=== PATIENT | male | born 1985 | race Native Hawaiian/Other Pacific Islander ===

== ENCOUNTER 2025-01-22 19:57 | Inpatient (IN) | payer OTHER ==
[2025-01-22 20:21] VITALS: BMI 34.1
[2025-01-22] MEDS ORDERED: IBUPROFEN 400 MG TABLET (FP) PO PRN (20:59)
[2025-01-22] MEDS ORDERED: BISMUTH SUBSALICYLATE 524 MG/30 ML PO PRN (20:59)
[2025-01-22] MEDS ORDERED: MAG HYDROX/AL HYDROX/SIMETH 30 ML UNIT-DOSE CUP PO PRN (20:59)
[2025-01-22] MEDS ORDERED: NALOXONE (NARCAN) HCL 4 MG/0.1 ML SPRAY NS PRN (20:59)
[2025-01-22] MEDS ORDERED: POLYETHYLENE GLYCOL (HEALTHYLAX) 3350 17 GM PACKET PO PRN (20:59)
[2025-01-22] MEDS ORDERED: NICOTINE POLACRILEX 4 MG GUM BUC PRN (20:59)
[2025-01-22] MEDS ORDERED: guaiFENesin 600 MG TABLET.ER (FP) PO PRN (20:59)
[2025-01-22] MEDS ORDERED: DICYCLOMINE HCL 10 MG CAPSULE PO PRN (20:59)
[2025-01-22] MEDS ORDERED: ONDANSETRON *ODT* 4 MG TABLET SL PRN (20:59)
[2025-01-22] MEDS ORDERED: MAGNESIUM HYDROX 2400MG/30ML ORAL SUSPENSION 30 ML CUP PO PRN (20:59)
[2025-01-22] MEDS ORDERED: LOPERAMIDE HCL 2 MG CAPSULE PO PRN (20:59)
[2025-01-22] MEDS ORDERED: BENZONATATE 200 MG CAPSULE PO PRN (20:59)
[2025-01-22] MEDS: MELATONIN 5 MG TABLETS PO SCH (22:44)
[2025-01-22] MEDS: THIAMINE 100 MG TABLET PO SCH (22:44)
[2025-01-22] MEDS: INSULIN (LEVEMIR) 100 UNITS/ML UNITS SQ SCH (23:21)
[2025-01-23] MEDS ORDERED: chlordiazePOXIDE HCL 25 MG CAPSULE PO PRN (07:55)
[2025-01-23] MEDS: chlordiazePOXIDE HCL 25 MG CAPSULE PO SCH (10:06)
[2025-01-23] MEDS: PRENATAL VITAMINS W/ FOLIC ACID TABLET (FP) PO SCH (10:06)
[2025-01-23] MEDS: NALTREXONE HCL 50 MG TABLET PO ONE (10:06)
[2025-01-23] MEDS: NALTREXONE HCL 50 MG TABLET PO SCH (10:13)
[2025-01-23 10:48] LABS: CHLORIDE 102 mmol/L (98-107); POTASSIUM 3.5 mmol/L (3.5-5.1); SODIUM 134 mmol/L (136-145)
[2025-01-23 10:51] LABS: HEMATOCRIT 41.5 % (35.4-49); HEMOGLOBIN 14.7 GM/dL (11.7-16.9); MCH 33.6 pg (25.7-33.7); MCHC 35.4 g/dl (32.0-35.9); MEAN CELL VOLUME 94.7 fl (80-96); MEAN PLT VOLUME 9.1 fl (7.5-11.1); PLATELET COUNT 206 10^3/uL (134-434); RBC 4.38 M/mm3 (4.00-5.60); RDW 12.9 % (11.9-15.9); WHITE BLOOD COUNT 6.9 K/mm3 (4.0-10.0)
[2025-01-23 11:05] LABS: ALBUMIN 3.1 g/dl (3.4-5.0); ANION GAP 4 mmol/L (4-13); BLOOD UREA NITROGEN 10.9 mg/dL (7-18); CALCIUM 8.5 mg/dL (8.5-10.1); CO2 28 mmol/L (21-32); GLUCOSE,RANDOM 255 mg/dL (74-106)
[2025-01-23 11:08] LABS: CREATININE 0.7 mg/dL (0.55-1.3); SGPT/ALT 74 U/L (13-61)
[2025-01-23 11:09] LABS: BILIRUBIN,TOTAL 0.5 mg/dL (0.2-1); SGOT/AST 49 U/L (15-37)
[2025-01-23 11:10] LABS: TOT PROT 6.5 g/dl (6.4-8.2)
[2025-01-23 11:11] LABS: ALK PHOS 171 U/L (45-117)
[2025-01-23] MEDS: ACETAMINOPHEN 325 MG TABLET (FP) PO PRN (17:14)
[2025-01-23] MEDS: INSULIN ASPART SLIDING SCALE (NOVOLOG) 1 VIAL SQ SCH (18:08)
[2025-01-23] MEDS ORDERED: INSULIN (NOVOLOG) ASPART 100 UNITS/ML 10ML VIAL ONE (18:10)
[2025-01-23] MEDS: BENZOCAINE/MENTHOL (CHLORASEPTIC ) LOZENGE MM PRN (21:32)
[2025-01-23] MEDS: METHOCARBAMOL 500 MG TABLET PO PRN (22:39)
[2025-01-23] MEDS: hydrOXYzine PAMOATE 25 MG CAPSULE (FP) PO PRN (22:39)
[2025-01-24] MEDS: NALTREXONE HCL 50 MG TABLET PO SCH (10:14)
[2025-01-24] MEDS ORDERED: INSULIN (NOVOLOG) ASPART 100 UNITS/ML 10ML VIAL ONE ×3 (10:56→22:17)
[2025-01-24] MEDS: IBUPROFEN 600 MG TABLET (FP) PO PRN (17:21)
[2025-01-25] MEDS ORDERED: INSULIN (NOVOLOG) ASPART 100 UNITS/ML 10ML VIAL ONE (00:13)
[2025-01-25] MEDS: INSULIN ASPART SLIDING SCALE (NOVOLOG) 1 VIAL SQ SCH (00:39)
[2025-01-25] MEDS: chlordiazePOXIDE HCL 25 MG CAPSULE PO SCH (05:33)
[2025-01-25] MEDS ORDERED: INSULIN GLARGINE (LANTUS) 100 UNITS/ML UNITS SQ SCH (12:20)
[2025-01-25] MEDS ORDERED: INSULIN (LEVEMIR) 100 UNITS/ML UNITS SQ SCH (22:00)
[2025-01-25] MEDS: INSULIN GLARGINE (LANTUS) 100 UNITS/ML UNITS SQ SCH (22:26)
[2025-01-26] MEDS ORDERED: chlordiazePOXIDE HCL 10 MG CAPSULE PO PRN
[2025-01-26] MEDS: chlordiazePOXIDE HCL 10 MG CAPSULE PO SCH (05:58)
[2025-01-26] MEDS ORDERED: INSULIN (NOVOLOG) ASPART 100 UNITS/ML 10ML VIAL ONE ×2 (06:17→11:42)
[2025-01-27] MEDS ORDERED: INSULIN (NOVOLOG) ASPART 100 UNITS/ML 10ML VIAL ONE ×2 (00:06→06:13)
[2025-01-27] MEDS: chlordiazePOXIDE HCL 10 MG CAPSULE PO SCH (06:00)
[2025-01-27 17:43] VITALS: TEMP 97.7
[2025-01-28] MEDS: chlordiazePOXIDE HCL 10 MG CAPSULE PO ONE (05:56)
[2025-01-28 09:34] VITALS: BP 120/79; PULSE 79; RESP 18
== END 2025-01-28 09:49 | disposition other institution (70) | DRG 775 ==
LOC: YASAS 19:57 → Y6N 22:21
PROVIDERS: ADMIT Allergy & Immunology; ATTEND Allergy & Immunology
PROC: HZ2ZZZZ Detoxification Services for Substance Abuse Treatment (ICD-10-PCS; principal; 2025-01-22)
DX: F10.230 Alcohol dependence with withdrawal, uncomplicated (principal); F12.20 Cannabis dependence, uncomplicated; F19.282 Other psychoactive substance dependence with psychoactive substance-induced sleep disorder; F19.280 Other psychoactive substance dependence with psychoactive substance-induced anxiety disorder; F19.24 Other psychoactive substance dependence with psychoactive substance-induced mood disorder; E11.9 Type 2 diabetes mellitus without complications; Z79.4 Long term (current) use of insulin; Z87.891 Personal history of nicotine dependence; Z59.01 Sheltered homelessness
CPT/HCPCS: 36415; 80053; 80305; 80307; 82962; 83036; 85027; 86780; 93005; 93010